=== PATIENT | female | born 1990 | race Caucasian/White ===

== ENCOUNTER 2016-12-21 09:30 | Emergency (ER) | payer OTHER ==
[~2016-12-21] VITALS: Ht 170.2 cm; Wt 94.9 kg
[~2016-12-21 09:30] MED LIST: HYDR-5688 PO; VNTHFA/IN INH
[2016-12-21 09:43] VITALS: TEMP 36.5; Ht 170.2 cm; Wt 94.9 kg
[2016-12-21] MEDS ORDERED: PHENAZOPYRIDINE HCL 200 MG TAB PO STA (10:46)
[2016-12-21] MEDS ORDERED: PHEN-876 PO (10:49)
[2016-12-21] MEDS ORDERED: NITR-5 PO (10:49)
[2016-12-21] MEDS ORDERED: NITROFURANTOIN MONOHYDRATE 100 MG CAP PO ONE (11:00)
[2016-12-21 11:03] VITALS: BP 120/89; PULSE 92; O2SAT 97
--- NOTE | 2016-12-21 12:10 | EMERGENCY ROOM VISIT NOTE ---
History First contact with patient: 09:40 Chief Complaint: URINARY SYMPTOMS Stated Complaint: POSSIBLE UTI, PAIN/BLEEDING Nursing Triage Summary: Pt states since this morning she has had urinary frequency, urgency and discomfort and when she wipes there is blood on the toilet tissue. Hx UTI, but never had blood before. Blood [place] in color with clots as well. History of Present Illness The patient is a 26 year old female who presents to the Emergency Room with complaints of urinary discomfort, frequency and urgency since awakening this morning at 5:30 AM. The patient also reports having blood clots in her urine. The patient reports that she has had multiple UTIs in the past. The patient estimates that she has 2 urinary tract infections monthly. She has not had one for the past few months. She has had a prior history of pyelonephritis. She currently denies any back pain, vomiting or fever. The patient denies . The patient has not followed up with a urologist to discuss her frequency of UTI. The patient does not recall which antibiotic she most recently took for her infection, and does not know if she has any resistant infections from the past. She rates her discomfort a 6 out of 10 on my exam. Review of Systems 10 system review was performed and was negative except for pertinent positives and negatives as indicated in history of present illness Past Medical/Surgical History Medical Problems: (1) Abdominal pain (2) Acute exacerbation of chronic low back pain (3) Back strain (4) Back strain (5) Chronic back pain (6) Headache disorder (7) History of back problems (8) Ovarian cyst (9) Pain, dental (10) Spinal stenosis (11) Supraventricular tachycardia Surgical Problems: (1) H/O section Family History Unremarkable Social History Smoking Status: Current Every Day Smoker Alcohol Use: occasionally Drug Use: none Marital Status: in relationship Housing Status: lives with family Occupation Status: unemployed Current/Historical Medications Scheduled Nitrofurantoin Monohyd Macrocr (Macrobid), 100 MG PO BID Scheduled PRN Phenazopyridine HCl (Pyridium), 200 MG PO TID PRN for dysuria Physical Exam Vital Signs Date Time Temp Pulse Resp B/P (MAP) Pulse Ox O2 Delivery O2 Flow Rate FiO2 12/21/16 11:03 92 18 120/89 97 12/21/16 09:43 36.5 86 15 128/82 98 Room Air Pain Rating (0-10): 0 Physical Exam CONSTITUTIONAL: Healthy and well nourished. Alert and oriented X 3 with positive affect. Patient does not appear in any acute distress. HEENT: Normocephalic, atraumatic. Pupils equal, round and reactive. No scleral icterus or conjunctival injection. NECK: Full active range of motion without discomfort. RESPIRATORY: Clear to auscultation bilaterally with no wheezing, crackles, rhonchi or stridor. CARDIOVASCULAR: Regular rate and rhythm with no murmurs, rubs or gallops. GASTROINTESTINAL: Bowel sounds present in all quadrants. Minimal suprapubic tenderness to palpation. Negative CVA tenderness. Negative McBurney's point tenderness. No abdominal rigidity, guarding or rebound. MUSCULOSKELETAL: Full range of motion of all joints without discomfort. INTEGUMENTARY: No rash or other significant dermatologic conditions noted. NEUROLOGIC: No focal neurologic deficits noted. Medical Decision & Procedures Laboratory Results Test 12/21/16 09:57 Urine Test NEG (NEG) Urine dip shows hematuria and leukocyte esterase. Urine is negative. The patient provided a very small urine sample, and remaining urine was sent to the lab for culture. Medications Administered Medications (Trade) Dose Ordered Sig/Talya Route Start Time Stop Time Status Last Admin Dose Admin Nitrofurantoin Macrocrystals (Macrobid Cap) 100 mg ONE ONCE PO 12/21/16 11:00 12/21/16 11:01 DC 12/21/16 11:01 100 MG Phenazopyridine HCl (Pyridium Tab) 200 mg NOW STAT PO 12/21/16 10:46 12/21/16 10:48 DC 12/21/16 11:01 200 MG ED Course Patient history and physical exam were performed. Nurse's notes were reviewed. Vital signs were reviewed and were normal. The patient was only able to provide a very small urine sample. Her urine dip showed hematuria and leukocyte esterase with a negative . Remaining urine was sent to the lab for culture. I attempted to review the patient's medication history, however could not be accessed. The patient did provide consent for me to call the [facility] pharmacy on [address]. I spoke with the pharmacist who reports that the patient has not had any recent antibiotic prescriptions, but the remote past was provided a prescription for Macrobid. I went to the patient that the pharmacist does not have any recent antibiotics on record, but the patient reports that she does recall Macrobid as likely her most recent antibiotic. The patient was administered Macrobid and Pyridium 200 mg in the emergency department, and provided prescriptions for both. She was instructed to return to the emergency department for any significant worsening pain, vomiting or fever. Otherwise I did suggest that she follow-up with her PCP for review of cultures, and to discuss possible urology referral given the frequency of her infections. The patient was happy with plan of care, voiced understanding of all discharge instructions, and rated her discomfort a 5 out of 10 at the conclusion of my exam, which was right before she was administered Macrobid and Pyridium at the time of discharge. Medical Decision History and clinical exam findings are not consistent with pyelonephritis. The abdominal exam is benign. The patient does have adequate findings on urine dip , and clinical symptoms consistent with UTI, and will be treated as such. She does not have physical exam findings consistent with pyelonephritis, appendicitis or peritonitis. The patient is not . I do not suspect ovarian torsion/cyst or other acute intrapelvic etiology. Medication Reconcilliation Current Medication List: was personally reviewed by me Blood Pressure Screening Patient's blood pressure: Normal blood pressure Impression Primary Impression: Symptoms of urinary tract infection Departure Information Dispostion Home / Self-Care Condition GOOD Prescriptions Phenazopyridine HCl (Pyridium) 200 Mg Tab 200 MG PO TID Y for dysuria, #5 TAB Prov: Brandan Garces PA 12/21/16 Nitrofurantoin Monohyd Macrocr (Macrobid) 100 Mg Cap 100 MG PO BID for 5 Days, #10 CAP Prov: Brandan Garces PA 12/21/16 Referrals Inderjit Garzon M.D. (PCP) Forms HOME CARE DOCUMENTATION FORM, IMPORTANT VISIT INFORMATION Patient Instructions UTI, My [facility] Additional Instructions Complete all Macrobid antibiotics as prescribed. Take Pyridium as prescribed as needed for urinary discomfort. Follow-up with your family doctor to review urine cultures in 2-3 days, and to verify with prior cultures that you are being treated with the correct antibiotic.. Suggest follow-up with a urologist given your history of frequent urinary tract infections. Your family doctor will need to provide a referral. Return to the emergency department for any significant worsening symptoms, including worsening pain, vomiting or developing fever.
== END 2016-12-21 11:03 | disposition home or self-care (01) ==
LOC: C.EDB 09:34
DX: R39.9 Unspecified symptoms and signs involving the genitourinary system (principal); M54.5 Low back pain; G89.29 Other chronic pain; M48.00 Spinal stenosis, site unspecified; I47.1 Supraventricular tachycardia; F17.210 Nicotine dependence, cigarettes, uncomplicated